=== PATIENT | female | born 1965 | race Caucasian/White ===

== ENCOUNTER → 2022-02-08 | Outpatient (CLI) | payer BC, SELFPAY ==
--- NOTE | 2022-02-08 10:04 | MRI_ITS ---
STUDY: MR RIGHT HIP ARTHROGRAPHY REASON FOR EXAM: Right hip pain for 10 months. TECHNIQUE: Standardized fat and water weighted pulse sequences were obtained in all 3 orthogonal planes after intra-articular instillation of dilute Dotarem. COMPARISON: Fluoroscopic image from arthrogram preceding the MRI. FINDINGS: Normal hip joint without articular joint space narrowing. Normal acetabulum. There is thickening of the anterior and superior labrum with a small tear of the anterosuperior labrum (URIEL images 10, 11). There is a small focus of bone edema of the lateral aspect of the femoral head (T2 coronal images 11, 12). Normal femoral neck and intratrochanteric region. Normal gluteus minimus, medius and iliopsoas tendons and distal insertions. There is no trochanteric, iliopsoas or iliopectineal bursitis. Normal superior and inferior pubic rami. Normal pubic symphysis. Normal ischial tuberosity. Normal origin of the hamstring tendons. Normal visualized iliac wing, sacroiliac joint, and sacral ala. There is mild extravasated contrast at the anterior aspect of the joint. MRI/Lower Ext/Jt Only/W Contrast IMPRESSION: Small tear of the anterosuperior labrum. Small focus of bone edema of the lateral aspect of the femoral head suggestive of femoroacetabular impingement. Electronically Signed: Nas George MD at 12:30 EDT ,
--- NOTE | 2022-02-08 10:20 | RAD_ITS ---
CLINICAL HISTORY: Female, 56 years old. Chronic right hip pain. PROCEDURE: ARTHROGRAM - RIGHT HIP CONSENT: The procedure as well as the benefits and possible complications including infection and bleeding were explained to the patient. Informed consent was obtained. FLUOROSCOPY TIME (if supplied): (25 seconds) minutes/seconds Injection Information: 10 cc of dilute MRI contrast. Number of images obtained: 1 TECHNIQUE: (All elements of maximal sterile barrier technique followed, including US elements as applicable) The patient was in the supine position. The overlying skin was prepped and draped in usual sterile fashion. Following local anesthetic application and under direct fluoroscopic guidance, a 22-gauge spinal needle was placed into the hip joint. 2 cc of ISOVUE 300 was injected for confirmation. Following this, 10 cc of dilute MRI contrast was injected. MRI will follow. The patient tolerated the procedure well. RAD/Arthrogram Hip IMPRESSION: Right hip arthrogram for MRI imaging. Electronically Signed: Jr hSah MD at 12:35 EDT ,
[2022-02-08] MEDS: Lidocaine 2% (10 ml mdv) 10 ML Vial 8 ML INFILT (10:55)
[2022-02-08] MEDS: Gadoterate Meglumine Diluted 10 ML, Iopamidol 5 ML, Lidocaine 1% (20 ml mdv) 5 ML, Epin... INTRAARTIC (11:02)
[2022-02-08] MEDS: Iopamidol 10 ML in Syringe 1 EACH 600 ML INTRAARTIC (11:02)
== END | disposition home or self-care (01) ==
PROVIDERS: PCP Family Medicine; Referring Provider Specialist; Visit Provider Specialist
DX: M25.851 Other specified joint disorders, right hip (principal)
CPT/HCPCS: 27093; 73525; 73722; Q9967

== ENCOUNTER 2024-03-14 08:54 | Outpatient (RCR) | payer BC, SELFPAY ==
[2024-03-14 09:03] VITALS: BP 140/84; PULSE 108; RESP 18; TEMP 36.7; BMI 30.6
--- NOTE | 2024-03-14 14:18 | HP.PCM_ITS ---
History of Present Illness Date of Service: 03/14/24 Chief Complaint: Nonhealing wound of right corea s/p laceration History of Wound: Flores is a pleasant 58 yo woman that presents to the wound healing center today for evaluation and treatment of a nonhealing wound of her right corea s/p a laceration in the beginning of February that occurred due to her falling through wood steps at her home. She was taken to [facility] by ambulance at that time and was seen by Dr. Munoz who sutured the laceration in the ER. She was started on Keflex to prevent infection and has been following up with him over the last few weeks. There was still a lot of swelling and erythema and Bactrim was added after the first visit to cover for additional possible infection and she has been taking that for approx. 3 weeks. He removed the stitches last week and tried to keep the laceration approximated with steri-str ips to encourage further healing and prevent further dehiscence and referred her to the wound center for further treatment. She will complete her antibiotic treatment tomorrow. She has been dressing her wound with Telfa bandages and using an MARI bandage for compression. She notes moderate to heavy drainage from the wound but no odor. She has some pain. There has been no increase in erythema. She has not been showering. She has only been cleaning with soap and water with dressing changes. She is otherwise healthy and does not have diabetes and has not had problems healing in the past. She will be leaving to go to her daughter's home in [place] on Sunday for approx. 1 week to help her move back to [place]. [facility] Medical History Hyperlipidemia Asthma Fibromyalgia Home Medications ?Medication ?Instructions ?Recorded ?Last Taken ?Type amitriptyline 50 mg tablet 50 mg PO QHS 03/14/24 Unknown History duloxetine 60 mg capsule,delayed 60 mg PO DAILY 03/14/24 Unknown History release fluticasone 250 mcg-salmeterol 50 1 ea inhalation BID 03/14/24 Unknown History mcg/dose blistr powdr for inhalation montelukast 10 mg tablet 10 mg PO QHS 03/14/24 Unknown History simvastatin 5 mg tablet 5 mg PO QPM 03/14/24 Unknown History zolpidem 5 mg tablet 5 mg PO QHS 03/14/24 Unknown History Allergy/AdvReac Type Severity Reaction Status Date / Time No Known Allergies Allergy Verified 03/14/24 09:02 Social History Smoking Status: Never smoker Vital Signs Vital Signs Vital Signs: 03/14/24 09:03 Temperature 98.1 F Temperature Source Temporal Pulse Rate 108 H Respiratory Rate 18 Blood Pressure 140/84 H Blood Pressure Mean 102 Blood Pressure Source Monitor Blood Pressure Position Semi-Fowlers Blood Pressure Location Left Arm Oxygen Delivery Method Room Air Weight Weight: 73.482 kg Body Mass Index (BMI) 30.6 Debridement Note Debridement Note Post-Debridement Measurements and Additional Note: Post-Debridement Measurements/Treatment WC - Nurse 1 - General Ulcer Assessment Start: 03/14/24 09:01 Freq: Status: Active Protocol: JAVIER Activity Type Activity Date Activity User E-sign Co-sign Detail Recorded Client Recorded Date Recorded By Document 03/14/24 09:03 [email or web address] [id number] 03/14/24 09:10 KW 03/14/24 09:03 - Today's Visit Information Type of service Initial Visit Arrival Mode Ambulatory Patient Identification Verified (Name & Yes ) Height and Weight Height 5 ft 1 in Weight 73.482 kg Weight in Pounds 162.0 lbs Weight Measurement Method Estimated by Patient Body Mass Index (BMI) 30.6 BMI Classification Obese BSA - Jorge 1.73 Vital Signs Temperature (97.8 F-99.1 F) 98.1 F Temperature Source Temporal Pulse Rate (60-100) 108 H Pulse Location Monitor Respiratory Rate (12-18) 18 Respiratory rate source Observation Oxygen Delivery Method Room Air Blood Pressure (90/60-120/80) 140/84 H Blood Pressure Mean 102 Source Monitor Position Semi-Fowlers Blood Pressure Location Left Arm History Since Last Visit- (Skip if this is Patient's initial visit) Left Footwear Regular Shoe Right Footwear Regular Shoe Pain Scale: 0-10 Numeric Is Patient Pain Free? Yes Lower Extremity Assessment/ Foot Assessment/ Toe Nail Assessment Left -Posterior Tibial Palpable Yes -Dorsalis Pedis Palpable Yes -Hair Growth on Legs Yes -Hair Growth on Toes Yes -Temperature of Extremity Warm -Capillary Refill Less than 3 Seconds -Thick No -Discolored No -Deformed No -Improper Length & Hygeine No Right -Posterior Tibial Palpable Yes -Dorsalis Pedis Palpable Yes -Hair Growth on Legs Yes -Hair Growth on Toes Yes -Temperature of Extremity Warm -Capillary Refill Less than 3 Seconds -Thick No -Discolored No -Deformed No -Improper Length & Hygeine No Communication Assessment Preferred language Arabic Molder Offbearer Required No Able to Read Yes Able to Write Yes Caregiver Communication Skills No Impairment Impairment Right Hearing Abillity Normal Left Hearing Abillity Normal Visual Assistive Devices Contacts Teaching Assessment Preferences Verbal Barriers to Learning None Readiness To Learn Excellent Willingness to Engage in Self Management High Activies Readiness to Engage in Self Management High Activities Anxiety Level Calm Cooperation Cooperative Perception Coherent Interest in Health Problem Asks Questions Education Importance Acknowledges Need Does Patient Smoke tobacco or other Yes substances Smoking Status Never smoker Is Patient Diabetic No Functional Assessment Recent Decline in Ability to Perform Denies Any Declines Culture/Jehovah'S Witness/J2Ee Android Developer Cultural/Jehovah'S Witness Needs that may affect No Treatment Plan Would you allow our hospital access representative to No meet you for the purpose of spiritual/ emotional support? J2Ee Android Developer to contact place of pentecostal No WC - Nurse 1 - General Ulcer Measurement Start: 03/14/24 09:01 Freq: Status: Active Protocol: Activity Type Activity Date Activity User E-sign Co-sign Detail Recorded Client Recorded Date Recorded By Document 03/14/24 09:03 [id number] 03/14/24 09:10 KW 03/14/24 09:03 Wound Center Nurse 1 #1 RT COREA -Current Size (cm) - Length 12 -Current Size (cm) - Width 10 -Current Size (cm) - Depth 0.1 -Total Square Cm 120 -Date of Last Picture (Recall this 03/14/24 field) -Wound Margin Distinct, Outline Attached -Necrosis Amt Large (67-100%) -Necrotic Tissue Type Eschar -Texture (Rozina-wound Skin Appearance) Assessed -Moisture (Rozina-wound Skin Appearance) Assessed -Color (Rozina-wound Skin Appearance) Assessed, Erythema -Temperature (Rozina-wound Skin No Abnormality Appearance) (Pt Warm) -Tenderness on Palpation (Rozina-wound No Skin Appearance) -Ulcer Cleansing Rinsed/ Irrigated with Saline -Foul Odor after Cleansing No -Anesthetic Used 4% Lidocaine Solution Right Calf (cm) 33.5 Right Ankle (cm) 19.5 WC - Nurse 2 - General Ulcer CM Notes Start: 03/14/24 09:01 Freq: Status: Active Protocol: Activity Type Activity Date Activity User E-sign Co-sign Detail Recorded Client Recorded Date Recorded By Document 03/14/24 09:47 [id number] 03/14/24 10:42 03/14/24 09:47 Wound Center Nurse 2 #1 RT COREA -Time 09:47 -Correct Patient Yes -Correct Side, Site, Position Yes -Correct Procedure Yes -Procedure Performed Yes -Type of Procedure Debridement -Clinical Debridement Subcutaneous -Tissue Removed Subcutaneous -Post Debridement (cm) - Length 10.5 -Post Debridement (cm) - Width 9.5 -Post Debridement (cm) - Depth 0.5 -Total Square (Post) (cm) 99.75 -Area of Debridement (cm) - Length 10.5 -Area of Debridement (cm) - Width 9.5 -Total Square (Area) (cm) 99.75 -Tunneling No -Undermining/Tunneling No -Circular Undermining No -Wound/Ulcer Outcome Not Healed -Ulcer Cleansing Rinsed/ Irrigated with Saline -Foul Odor after Cleansing No -Bioengineered Tissue No -Bleeding Controlled with Pressure -Treatment Response Procedure Tolerated Well -Debridement - Subq, 1st 20sq cm Yes -Debridement, SubQ, ea addt'l 20sq cm 4 or part thereof Pain Scale: 0-10 Numeric Is Patient Pain Free? Yes WC - Nurse 3 - General Ulcer D/C NN Start: 03/14/24 09:01 Freq: Status: Active Protocol: Activity Type Activity Date Activity User E-sign Co-sign Detail Recorded Client Recorded Date Recorded By Document 03/14/24 11:53 [id number] 03/14/24 11:56 03/14/24 11:53 Wound Care Center Nurse 3 #1 RT COREA -Ulcer Cleansing Rinsed/ Irrigated with Saline -Primary Dressing Applied Aquacel AG 4x4, Fibracol Plus 4x4 -Other Dressing ABD -Primary Dressing Covered/Secured with Dry Gauze & Roll Gauze, Secured with Tape -Aquacel AG 4x4 2 -Fibracol Plus 4x4 3 Right -Tubular Bandage Single Layer -Size of Tubigrip Used Size D -Size D ($) 2 Treatment Response Procedure Tolerated Well Pain Scale: 0-10 Numeric Is Patient Pain Free? No RLE -Description Aching -Intensity 5 -Duration (hours) Acute -Pain Behavior Withdrawal from Touch -Pain Aggravating Factors Exercise/ Activity, Debridement -Alleviating Factors/Interventions Medication,None -Effectiveness of Alleviating Factor/ Minimally Intervention effective Teaching: Wound Center Compression Wraps & Stockings -Person Taught Patient -Teaching Method Discussion, Demonstration -Response to teaching Verbalize Understanding Dressing Your Wound -Person Taught Patient -Teaching Method Discussion, Demonstration -Response to teaching Verbalize Understanding WC - Visit Discharge Discharge Condition Stable Ambulatory Status Ambulatory Transportation Private Auto Medication Reconcilliation completed & No provided to patient/care provider Clinical Summary of Care Provided Yes Assessment/Plan Assessment/Plan (1) Fibromyalgia: CODE(S): M79.7 - Fibromyalgia (2) Asthma: CODE(S): J45.909 - Unspecified asthma, uncomplicated QUALIFIERS: Asthma severity: mild Asthma persistence: persistent Asthma complication type: unspecified Qualified Code(s): J45.30 - Mild persistent asthma, uncomplicated (3) Hyperlipidemia: CODE(S): E78.5 - Hyperlipidemia, unspecified QUALIFIERS: Hyperlipidemia type: unspecified Qualified Code(s): E78.5 - Hyperlipidemia, unspecified (4) Ulcer of right corea with fat layer exposed: CODE(S): L97.812 - Non-pressure chronic ulcer of other part of right lower leg with fat layer exposed (5) Nonhealing nonsurgical wound with fat layer exposed: CODE(S): T14.8XXA - Other injury of unspecified body region, initial encounter (6) Tear of skin of multiple sites of right lower extremity: CODE(S): S81.811A - Laceration without foreign body, right lower leg, init ial encounter QUALIFIERS: Encounter type: sequela Qualified Code(s): S81.811S - Laceration without foreign body, right lower leg, sequela (7) Laceration of right lower leg with complication: CODE(S): S81.811A - Laceration without foreign body, right lower leg, initial encounter QUALIFIERS: Encounter type: sequela Qualified Code(s): S81.811S - Laceration without foreign body, right lower leg, sequela PLAN: Plan Wound debridement performed today in clinic as annotated above. At home wound-care instructions: Will have her use Fibracol to open areas with additional piece of Aquacel Ag at the deepest part/apex and cover with ABD. She will use and MARI bandage for compression or Tubigrip. Advised her to shower and wash with antibacterial soap daily before applying a new dressing. if dressing is adherent then she can apply warm washcloth to loosen dressing from wound/ulcer. Keep dressing clean and dry. Off-loading: The patient was instructed to avoid pressure and friction on the affected areas. Reposition every 2 hours at minimum. Avoid prolonged standing and/or dangling of legs. When seated, feet should be elevated at chest level. Frequent ambulation is encouraged. Diet: Patient encouraged to increase protein intake while taking caution to avoid high carbohydrate and/or sugar intake. Labs/cultures/imaging: Wound culture taken today and will treat with antibiotic based on results. Follow-up: Return in 2 weeks for wound care follow up as she will be out of town. Return sooner or report to the emergency room should symptoms worsen, or new symptoms arise. Note: [employer] speech recognition food safety manager software was used to create portions of this document. Sound-alike and misspelled words, as well as other food safety manager errors may be contained in the documentation.
== END 2024-03-15 23:59 | disposition home or self-care (01) ==
LOC: WC 08:54
PROVIDERS: PCP Family Medicine; Referring Provider Student in an Organized Health Care Education/Training Program; Visit Provider Family Medicine
DX: S81.811A Laceration without foreign body, right lower leg, initial encounter (principal); L97.212 Non-pressure chronic ulcer of right calf with fat layer exposed; E78.5 Hyperlipidemia, unspecified; J45.30 Mild persistent asthma, uncomplicated; M79.7 Fibromyalgia; W10.9XXA Fall (on) (from) unspecified stairs and steps, initial encounter; Y92.009 Unspecified place in unspecified non-institutional (private) residence as the place of occurrence of the external cause; M79.89 Other specified soft tissue disorders; Z79.899 Other long term (current) drug therapy
CPT/HCPCS: 11042; 11045; 87070; 87075; 87205; 99213; G0463

== ENCOUNTER 2024-04-11 10:30 | Outpatient (RCR) | payer BC, SELFPAY ==
[2024-03-16 00:57] VITALS: BP 140/84; PULSE 108; RESP 18; TEMP 36.7; BMI 30.6
[2024-03-28 10:14] VITALS: BP 129/77; PULSE 90; RESP 18; TEMP 36.1; BMI 30.6
[2024-04-04 10:19] VITALS: BP 113/62; PULSE 105; RESP 18; TEMP 36.1; BMI 30.6
[2024-04-11 10:27] VITALS: BP 118/72; PULSE 102; RESP 16; TEMP 36.7; BMI 30.6
== END 2024-04-14 23:59 | disposition home or self-care (01) ==
LOC: WC 10:30
PROVIDERS: PCP Family Medicine; Referring Provider Student in an Organized Health Care Education/Training Program; Visit Provider Family Medicine
DX: L97.812 Non-pressure chronic ulcer of other part of right lower leg with fat layer exposed (principal); M79.7 Fibromyalgia; J45.909 Unspecified asthma, uncomplicated; E78.5 Hyperlipidemia, unspecified; T14.8XXA Other injury of unspecified body region, initial encounter; S81.811S Laceration without foreign body, right lower leg, sequela
CPT/HCPCS: 11042; 11045; 87070; 87075; 87077; 87186; 87205

== ENCOUNTER 2024-05-09 10:30 | Outpatient (RCR) | payer BC, SELFPAY ==
[2024-04-15 00:24] VITALS: BP 140/84; PULSE 108; RESP 18; TEMP 36.7; BMI 30.6
[2024-04-18 11:22] VITALS: BP 113/74; PULSE 111; RESP 18; TEMP 36.3; BMI 30.6
--- NOTE | 2024-04-18 13:20 | PN.PCM_ITS ---
History of Present Illness Date of Service: 04/18/24 Chief Complaint: Nonhealing ulcer of right corea s/p laceration History of Wound: Flores is a pleasant 58 yo woman that presents to the wound healing center today for evaluation and treatment of a nonhealing ulcer of her right corea s/p a laceration in the beginning of February that occurred due to her falling through wood steps at her home. She was taken to [facility] by ambulance at that time and was seen by Dr. Munoz who sutured the laceration in the ER. She was started on Keflex to prevent infection and has been following up with him over the last few weeks. There was still a lot of swelling and erythema and Bactrim was added after the first visit to cover for additional possible infection and she has been taking that for approx. 3 weeks. He removed the stitches last week and tried to keep the laceration approximated with steri-str ips to encourage further healing and prevent further dehiscence and referred her to the wound center for further treatment. She had been dressing her wound with Telfa bandages and using an MARI bandage for compression. She notes moderate to heavy drainage from the wound but no odor. She has some pain. There has been no increase in erythema. She has not been showering. She has only been cleaning wit h soap and water with dressing changes. She is otherwise healthy and does not have diabetes and has not had problems healing in the past. Subjective Subjective Flores returns today for evaluation of her right corea ulcer. She tolerated dressings with hydrogel and adaptic and ABDs well. She reports light drainage. She denies increased drainage, fever or chills. Objective Data Objective Data Vital Signs: Vital Signs Temp Pulse Resp BP O2 Del Method 97.4 F L 111 H 18 113/74 Room Air 04/18/24 11:22 04/18/24 11:22 04/18/24 11:22 04/18/24 11:22 04/18/24 11:22 Oxygen Delivery Method Room Air Weight: 73.482 kg Body Mass Index (BMI) 30.6 Physical Exam Const alert, oriented x3 and no apparent distress General Appearance: cooperative and comfortable HEENT normocephalic and head/scalp atraumatic Resp normal respiratory effort Effort and Inspection: able to speak in complete sentences Cardio regular rate and regular rhythm Skin Wounds: wounds noted Wound Narrative: as in clinical panel Psych mental status grossly normal, thought process normal, cooperative and affect normal Debridement Note Debridement Note Wound debrided: right corea Laterality: Right Type of Debridement: Excisional debridement Anesthesia Used: 4% Lidocaine Solution, 5% Lidocaine Gel and Cetacaine Depth: Down to and including healthy tissue and in the subcutaneous layer Percentage of wound debrided: 100 Instrument Used: 5mm curette Tissue Removed: Yellow slough, devitalized tissue Severity: Fat Layer Exposed Amount of bleeding with debridement: Mild Bleeding Controlled with: Compression and gauze Patient tolerated procedure: Patient tolerated procedure well Post-Debridement Measurements and Additional Note: Post-Debridement Measurements/Treatment - Nurse 1 - General Ulcer Assessment Start: 04/18/24 11:22 Freq: Status: Active Protocol: JAVIER Activity Type Activity Date Activity User E-sign Co-sign Detail Recorded Client Recorded Date Recorded By Document 04/18/24 11:22 BLANCA [id number] 04/18/24 11:28 BLANCA 04/18/24 11:22 WC - Today's Visit Information Type of service Follow-up Visit (Physician/[employer]PER[employer] ) Arrival Mode Ambulatory Patient Identification Verified (Name & Yes ) Height and Weight Body Mass Index (BMI) 30.6 BMI Classification Obese Vital Signs Temperature (97.8 F-99.1 F) 97.4 F L Temperature Source Temporal Pulse Rate (60-100) 111 H Pulse Location Monitor Respiratory Rate (12-18) 18 Respiratory rate source Observation Oxygen Delivery Method Room Air Blood Pressure (90/60-120/80) 113/74 Blood Pressure Mean (mm Hg) 87 Source Monitor Position Sitting Blood Pressure Location Left Arm History Since Last Visit- (Skip if this is Patient's initial visit) Have you changed medications since your No last visit? Any new allergies or adverse reactions No Had a fall/change in ADL's that may No increase risk of falls Signs or symptoms of abuse and/or No neglect since last visit Have you been in the hospital since your No last visit? Has dressing in place as prescribed Yes Has compression in place as prescribed Yes Has offloadiing in place as prescribed N/A Experienced any changes in pain level or No management Left Footwear Regular Shoe Right Footwear Regular Shoe Pain Scale: 0-10 Numeric Is Patient Pain Free? Yes - Nurse 1 - General Ulcer Measurement Start: 04/18/24 11:22 Freq: Status: Active Protocol: Activity Type Activity Date Activity User E-sign Co-sign Detail Recorded Client Recorded Date Recorded By Document 04/18/24 11:22 KW [id number] 04/18/24 11:28 KW 04/18/24 11:22 Wound Center Nurse 1 #1 RT COREA -Current Size (cm) - Length 9 -Current Size (cm) - Width 8.5 -Current Size (cm) - Depth 0.2 -Total Square Cm 76.5 -Date of Last Picture (Recall this 04/18/24 field) -Exudate Amt Small -Exudate Type Serosanguineous -Wound Margin Distinct, Outline Attached -Granulation Amt Medium (34-66%) -Granulation Quality Red -Necrosis Amt Medium (34-66%) -Necrotic Tissue Type Adherent Slough -Texture (Rozina-wound Skin Appearance) Assessed -Moisture (Rozina-wound Skin Appearance) Assessed -Color (Rozina-wound Skin Appearance) Assessed -Temperature (Rozina-wound Skin No Abnormality Appearance) (Pt Warm) -Tenderness on Palpation (Rozina-wound No Skin Appearance) -Ulcer Cleansing Rinsed/ Irrigated with Saline -Foul Odor after Cleansing No -Anesthetic Used 5% Lidocaine Gel Right Calf (cm) 34 Right Ankle (cm) 20 WC - Nurse 2 - General Ulcer CM Notes Start: 04/18/24 11:22 Freq: Status: Active Protocol: Activity Type Activity Date Activity User E-sign Co-sign Detail Recorded Client Recorded Date Recorded By Document 04/18/24 11:42 [id number] 04/18/24 12:03 04/18/24 11:42 Wound Center Nurse 2 #1 RT COREA -Time 11:42 -Correct Patient Yes -Correct Side, Site, Position Yes -Correct Procedure Yes -Procedure Performed Yes -Type of Procedure Debridement -Clinical Debridement Subcutaneous -Tissue Removed Subcutaneous -Post Debridement (cm) - Length 3.0 -Post Debridement (cm) - Width 6.0 -Post Debridement (cm) - Depth 0.2 -Total Square (Post) (cm) 18.00 -Area of Debridement (cm) - Length 3.0 -Area of Debridement (cm) - Width 6.0 -Total Square (Area) (cm) 18.00 -Tunneling No -Undermining/Tunneling No -Circular Undermining No -Wound/Ulcer Outcome Not Healed -Ulcer Cleansing Rinsed/ Irrigated with Saline -Foul Odor after Cleansing No -Bioengineered Tissue No -Bleeding Controlled with Pressure -Treatment Response Procedure Tolerated Well -Debridement - Subq, 1st 20sq cm Yes Pain Scale: 0-10 Numeric Is Patient Pain Free? Yes - Nurse 3 - General Ulcer D/C NN Start: 04/18/24 11:22 Freq: Status: Active Protocol: Activity Type Activity Date Activity User E-sign Co-sign Detail Recorded Client Recorded Date Recorded By Document 04/18/24 12:10 RB [id number] 04/18/24 12:11 RB 04/18/24 12:10 Wound Care Center Nurse 3 #1 RT COREA -Ulcer Cleansing Rinsed/ Irrigated with Saline -Primary Dressing Applied NonAdherent Contact Layer -Other Dressing hydrogel -Primary Dressing Covered/Secured with Dry Gauze & Roll Gauze, Secured with Tape -Other Covering ABD Right -Tubular Bandage Single Layer -Size of Tubigrip Used Size D -Size D ($) 1 Treatment Response Procedure Tolerated Well Pain Scale: 0-10 Numeric Is Patient Pain Free? Yes - Visit Discharge Discharge Condition Stable Ambulatory Status Ambulatory Transportation Private Auto Medication Reconcilliation completed & No provided to patient/care provider Clinical Summary of Care Provided Yes Assessment/Plan Assessment/Plan (1) Fibromyalgia: CODE(S): M79.7 - Fibromyalgia (2) Asthma: CODE(S): J45.909 - Unspecified asthma, uncomplicated QUALIFIERS: Asthma severity: mild Asthma persistence: persistent Asthma complication type: unspecified Qualified Code(s): J45.30 - Mild persistent asthma, uncomplicated (3) Hyperlipidemia: CODE(S): E78.5 - Hyperlipidemia, unspecified QUALIFIERS: Hyperlipidemia type: unspecified Qualified Code(s): E78.5 - Hyperlipidemia, unspecified (4) Ulcer of right corea with fat layer exposed: CODE(S): L97.812 - Non-pressure chronic ulcer of other part of right lower leg with fat layer exposed (5) Nonhealing nonsurgical wound with fat layer exposed: CODE(S): T14.8XXA - Other injury of unspecified body region, initial encounter (6) Tear of skin of multiple sites of right lower extremity: CODE(S): S81.811A - Laceration without foreign body, right lower leg, initial encounter QUALIFIERS: Encounter type: sequela Qualified Code(s): S81.811S - Laceration without foreign body, right lower leg, sequela (7) Laceration of right lower leg with complication: CODE(S): S81.811A - Laceration without foreign body, right lower leg, initial encounter QUALIFIERS: Encounter type: sequela Qualified Code(s): S81.811S - Laceration without foreign body, right lower leg, sequela PLAN: Plan Wound debridement performed today in clinic as annotated above. At home wound-care instructions: There is improvement with change to Hydrogel and adaptic and having her reapply hydrogel 8-12 hours after initial dressing change to areas that are more dry. She will continue to use an MARI bandage for compression or Tubigrip. Advised her to shower and wash with antibacterial soap daily before applying a new dressing. if dressing is adherent then she can apply warm washcloth to loosen dressing from wound/ulcer. Keep dressing clean and dry. Off-loading: The patient was instructed to avoid pressure and friction on the affected areas. Reposition every 2 hours at minimum. Avoid prolonged standing an d/or dangling of legs. When seated, feet should be elevated at chest level. Frequent ambulation is encouraged. Diet: Patient encouraged to increase protein intake while taking caution to avoid high carbohydrate and/or sugar intake. Labs/cultures/imaging: Wound culture was positive for Serratia, Staph and anaerobic bacteria. She completed treatment with Cipro and Flagyl. Follow-up: Return in 1 week for wound care follow up as she will be out of town. Return sooner or report to the emergency room should symptoms worsen, or new symptoms arise. Note: [employer] speech recognition health informatics instructor software was used to create portions of this document. Sound-alike and misspelled words, as well as other health informatics instructor errors may be contained in the documentation.
--- NOTE | 2024-04-22 11:37 | WC ---
PHOTO RIGHT WU 04/18/24
[2024-04-25 08:19] VITALS: BP 140/84; PULSE 94; RESP 18; TEMP 35.7; BMI 30.6
--- NOTE | 2024-04-25 09:18 | PN.PCM_ITS ---
History of Present Illness Date of Service: 04/25/24 Chief Complaint: Nonhealing ulcer of right corea s/p laceration History of Wound: Flores is a pleasant 58 yo woman that presents to the wound healing center today for evaluation and treatment of a nonhealing ulcer of her right corea s/p a laceration in the beginning of February that occurred due to her falling through wood steps at her home. She was taken to [facility] by ambulance at that time and was seen by Dr. Munoz who sutured the laceration in the ER. She was started on Keflex to prevent infection and has been following up with him over the last few weeks. There was still a lot of swelling and erythema and Bactrim was added after the first visit to cover for additional possible infection and she has been taking that for approx. 3 weeks. He removed the stitches last week and tried to keep the laceration approximated with steri-str ips to encourage further healing and prevent further dehiscence and referred her to the wound center for further treatment. She had been dressing her wound with Telfa bandages and using an MARI bandage for compression. She notes moderate to heavy drainage from the wound but no odor. She has some pain. There has been no increase in erythema. She has not been showering. She has only been cleaning wit h soap and water with dressing changes. She is otherwise healthy and does not have diabetes and has not had problems healing in the past. Subjective Subjective Flores returns today for evaluation of her right corea ulcer. She tolerated dressings with hydrogel and adaptic and ABDs well. She reports light drainage. She denies increased drainage, fever or chills. Objective Data Objective Data Vital Signs: Vital Signs Temp Pulse Resp BP O2 Del Method 96.3 F L 94 18 140/84 H Room Air 04/25/24 08:19 04/25/24 08:19 04/25/24 08:19 04/25/24 08:19 04/25/24 08:19 Oxygen Delivery Method Room Air Weight: 73.482 kg Body Mass Index (BMI) 30.6 Physical Exam Const alert, oriented x3 and no apparent distress General Appearance: cooperative and comfortable HEENT normocephalic and head/scalp atraumatic Resp normal respiratory effort Effort and Inspection: able to speak in complete sentences Cardio regular rate and regular rhythm Skin Wounds: wounds noted Wound Narrative: as in clinical panel Psych mental status grossly normal, thought process normal, cooperative and affect normal Debridement Note Debridement Note Wound debrided: right corea Laterality: Right Type of Debridement: Excisional debridement Anesthesia Used: 5% Lidocaine Gel and Cetacaine Depth: Down to and including healthy tissue and in the subcutaneous layer Percentage of wound debrided: 100 Instrument Used: 3mm curette Tissue Removed: Yellow slough, devitalized tissue Severity: Fat Layer Exposed Amount of bleeding with debridement: Mild Bleeding Controlled with: Compression and gauze Patient tolerated procedure: Patient tolerated procedure well Post-Debridement Measurements and Additional Note: Post-Debridement Measurements/Treatment - Nurse 1 - General Ulcer Assessment Start: 04/18/24 11:22 Freq: Status: Active Protocol: JAVIER Activity Type Activity Date Activity User E-sign Co-sign Detail Recorded Client Recorded Date Recorded By Document 04/18/24 11:22 KW [id number] 04/18/24 11:28 KW Document 04/25/24 08:19 KW [id number] 04/25/24 08:31 KW 04/18/24 04/25/24 11:22 08:19 - Today's Visit Information Type of service Follow-up Visit Follow-up Visit (Physician/PLATE MAKER (Physician/PLATE MAKER ) ) Arrival Mode Ambulatory Ambulatory Accompanied by Patient Identification Verified (Name & Yes Yes ) Height and Weight Body Mass Index (BMI) 30.6 30.6 BMI Classification Obese Obese Vital Signs Temperature (97.8 F-99.1 F) 97.4 F L 96.3 F L Temperature Source Temporal Temporal Pulse Rate (60-100) 111 H 94 Pulse Location Monitor Monitor Respiratory Rate (12-18) 18 18 Respiratory rate source Observation Observation Oxygen Delivery Method Room Air Room Air Blood Pressure (90/60-120/80) 113/74 140/84 H Blood Pressure Mean (mm Hg) 87 102 Source Monitor Monitor Position Sitting Semi-Fowlers Blood Pressure Location Left Arm Left Arm History Since Last Visit- (Skip if this is Patient's initial visit) Have you changed medications since your No No last visit? Any new allergies or adverse reactions No No Had a fall/change in ADL's that may No No increase risk of falls Signs or symptoms of abuse and/or No No neglect since last visit Have you been in the hospital since your No No last visit? Has dressing in place as prescribed Yes Yes Has compression in place as prescribed Yes Yes Has offloadiing in place as prescribed N/A N/A Experienced any changes in pain level or No No management Left Footwear Regular Shoe Regular Shoe Right Footwear Regular Shoe Regular Shoe Pain Scale: 0-10 Numeric Is Patient Pain Free? Yes Yes WC - Nurse 1 - General Ulcer Measurement Start: 04/18/24 11:22 Freq: Status: Active Protocol: Activity Type Activity Date Activity User E-sign Co-sign Detail Recorded Client Recorded Date Recorded By Document 04/18/24 11:22 KW [id number] 04/18/24 11:28 KW Document 04/25/24 08:19 KW [id number] 04/25/24 08:31 KW 04/18/24 04/25/24 11:22 08:19 Wound Center Nurse 1 #1 RT COREA -Current Size (cm) - Length 9 3 -Current Size (cm) - Width 8.5 5.7 -Current Size (cm) - Depth 0.2 0.3 -Total Square Cm 76.5 17.1 -Date of Last Picture (Recall this 04/18/24 04/25/24 field) -Exudate Amt Small Small -Exudate Type Serosanguineous Serosanguineous -Wound Margin Distinct, Distinct, Outline Outline Attached Attached -Granulation Amt Medium (34-66%) Large (67-100%) -Granulation Quality Red [place] -Necrosis Amt Medium (34-66%) Medium (34-66%) -Necrotic Tissue Type Adherent Slough Adherent Slough -Texture (Rozina-wound Skin Appearance) Assessed Assessed -Moisture (Rozina-wound Skin Appearance) Assessed Assessed -Color (Rozina-wound Skin Appearance) Assessed Assessed -Temperature (Rozina-wound Skin No Abnormality No Abnormality Appearance) (Pt Warm) (Pt Warm) -Tenderness on Palpation (Rozina-wound No No Skin Appearance) -Ulcer Cleansing Rinsed/ Rinsed/ Irrigated with Irrigated with Saline Saline -Foul Odor after Cleansing No No -Anesthetic Used 5% Lidocaine 5% Lidocaine Gel Gel Right Calf (cm) 34 Right Ankle (cm) 20 Left Calf (cm) 33.5 Left Ankle (cm) 19 WC - Nurse 2 - General Ulcer CM Notes Start: 04/18/24 11:22 Freq: Status: Active Protocol: Activity Type Activity Date Activity User E-sign Co-sign Detail Recorded Client Recorded Date Recorded By Document 04/18/24 11:42 [id number] 04/18/24 12:03 Document 04/25/24 08:43 [id number] 04/25/24 08:56 04/18/24 04/25/24 11:42 08:43 Wound Center Nurse 2 #1 RT COREA -Time 11:42 08:43 -Correct Patient Yes Yes -Correct Side, Site, Position Yes Yes -Correct Procedure Yes Yes -Procedure Performed Yes Yes -Type of Procedure Debridement Debridement -Clinical Debridement Subcutaneous Subcutaneous -Tissue Removed Subcutaneous Subcutaneous -Post Debridement (cm) - Length 3.0 1.0 -Post Debridement (cm) - Width 6.0 3.7 -Post Debridement (cm) - Depth 0.2 0.2 -Total Square (Post) (cm) 18.00 3.70 -Area of Debridement (cm) - Length 3.0 1.0 -Area of Debridement (cm) - Width 6.0 3.7 -Total Square (Area) (cm) 18.00 3.70 -Tunneling No No -Undermining/Tunneling No No -Circular Undermining No No -Wound/Ulcer Outcome Not Healed Not Healed -Ulcer Cleansing Rinsed/ Rinsed/ Irrigated with Irrigated with Saline Saline -Foul Odor after Cleansing No No -Bioengineered Tissue No No -Bleeding Controlled with Pressure Pressure -Treatment Response Procedure Procedure Tolerated Well Tolerated Well -Debridement - Subq, 1st 20sq cm Yes Yes Pain Scale: 0-10 Numeric Is Patient Pain Free? Yes Yes - Nurse 3 - General Ulcer D/C NN Start: 04/18/24 11:22 Freq: Status: Active Protocol: Activity Type Activity Date Activity User E-sign Co-sign Detail Recorded Client Recorded Date Recorded By Document 04/18/24 12:10 [id number] 04/18/24 12:11 04/18/24 12:10 Wound Care Center Nurse 3 #1 RT COREA -Ulcer Cleansing Rinsed/ Irrigated with Saline -Primary Dressing Applied NonAdherent Contact Layer -Other Dressing hydrogel -Primary Dressing Covered/Secured with Dry Gauze & Roll Gauze, Secured with Tape -Other Covering ABD Right -Tubular Bandage Single Layer -Size of Tubigrip Used Size D -Size D ($) 1 Treatment Response Procedure Tolerated Well Pain Scale: 0-10 Numeric Is Patient Pain Free? Yes - Visit Discharge Discharge Condition Stable Ambulatory Status Ambulatory Transportation Private Auto Medication Reconcilliation completed & No provided to patient/care provider Clinical Summary of Care Provided Yes Assessment/Plan Assessment/Plan (1) Fibromyalgia: CODE(S): M79.7 - Fibromyalgia (2) Asthma: CODE(S): J45.909 - Unspecified asthma, uncomplicated QUALIFIERS: Asthma severity: mild Asthma persistence: persistent Asthma complication type: unspecified Qualified Code(s): J45.30 - Mild persiste nt asthma, uncomplicated (3) Hyperlipidemia: CODE(S): E78.5 - Hyperlipidemia, unspecified QUALIFIERS: Hyperlipidemia type: unspecified Qualified Code(s): E78.5 - Hyperlipidemia, unspecified (4) Ulcer of right corea with fat layer exposed: CODE(S): L97.812 - Non-pressure chronic ulcer of other part of right lower leg with fat layer exposed (5) Nonhealing nonsurgical wound with fat layer exposed: CODE(S): T14.8XXA - Other injury of unspecified body region, initial encounter (6) Tear of skin of multiple sites of right lower extremity: CODE(S): S81.811A - Laceration without foreign body, right lower leg, initial encounter QUALIFIERS: Encounter type: sequela Qualified Code(s): S81.811S - Laceration without foreign body, right lower leg, sequela (7) Laceration of right lower leg with complication: CODE(S): S81.811A - Laceration without foreign body, right lower leg, initial encounter QUALIFIERS: Encounter type: sequela Qualified Code(s): S81.811S - Laceration without foreign body, right lower leg, sequela PLAN: Plan Wound debridement performed today in clinic as annotated above. At home wound-care instructions: There is improvement with change to Hydrogel and adaptic and having her reapply hydrogel 8-12 hours after initial dressing change to areas that are more dry. She will continue to use an MARI bandage for compression or Tubigrip. Advised her to shower and wash with antibacterial soap daily before applying a new dressing. If dressing is adherent then she can apply warm washcloth to loosen dressing from wound/ulcer. Keep dressing clean and dry. Off-loading: The patient was instructed to avoid pressure and friction on the affected areas. Reposition every 2 hours at minimum. Avoid prolonged standing and/or dangling of legs. When seated, feet should be elevated at chest level. Frequent ambulation is encouraged. Diet: Patient encouraged to increase protein intake while taking caution to avoid high carbohydrate and/or sugar intake. Labs/cultures/imaging: Wound culture was positive for Serratia, Staph and anaerobic bacteria. She completed treatment with Cipro and Flagyl. Follow-up: Return in 1 week for wound care follow up as she will be out of town. Return sooner or report to the emergency room should symptoms worsen, or new symptoms arise. Note: [employer] speech recognition multimedia production assistant software was used to create portions of this document. Sound-alike and misspelled words, as well as other multimedia production assistant errors may be contained in the documentation.
--- NOTE | 2024-04-28 10:48 | WC ---
PHOTO 04/25/24 Dean WU
[2024-05-02 10:25] VITALS: BP 116/78; PULSE 100; RESP 18; TEMP 36.3; BMI 30.6
--- NOTE | 2024-05-02 12:49 | PCM.WC.PN ---
History of Present Illness Date of Service: 05/02/24 Chief Complaint: Nonhealing ulcer of right corea s/p laceration History of Wound: Flores is a pleasant 58 yo woman that presents to the wound healing center today for evaluation and treatment of a nonhealing ulcer of her right corea s/p a laceration in the beginning of February that occurred due to her falling through wood steps at her home. She was taken to [facility] by ambulance at that time and was seen by Dr. Munoz who sutured the laceration in the ER. She was started on Keflex to prevent infection and has been following up with him over the last few weeks. There was still a lot of swelling and erythema and Bactrim was added after the first visit to cover for additional possible infection and she has been taking that for approx. 3 weeks. He removed the stitches last week and tried to keep the laceration approximated with steri-strips to encourage further healing and prevent further dehiscence and referred her to the wound center for further treatment. She had been dressing her wound with Telfa bandages and using an MARI bandage for compression. She notes moderate to heavy drainage from the wound but no odor. She has some pain. There has been no increase in erythema. She has not been showering. She has only been cleaning with soap and water with dressing changes. She is otherwise healthy and does not have diabetes and has not had problems healing in the past. Subjective Subjective Flores returns today for evaluation of her right corea ulcer. She is tolerating dressings with hydrogel and adaptic and ABDs well. She reports light drainage. She denies increased drainage, fever or chills. Objective Data Objective Data Vital Signs: Vital Signs Temp Pulse Resp BP O2 Del Method 97.4 F L 100 18 116/78 Room Air 05/02/24 10:25 05/02/24 10:25 05/02/24 10:25 05/02/24 10:25 04/25/24 08:19 Oxygen Delivery Method Room Air Weight: 73.482 kg Body Mass Index (BMI) 30.6 Physical Exam Const alert, oriented x3 and no apparent distress General Appearance: cooperative and comfortable HEENT normocephalic and head/scalp atraumatic Resp normal respiratory effort Effort and Inspection: able to speak in complete sentences Cardio regular rate and regular rhythm Skin Wounds: wounds noted Wound Narrative: as in clinical panel Psych mental status grossly normal, thought process normal, cooperative and affect normal Debridement Note Debridement Note Wound debrided: right corea Laterality: Right Type of Debridement: Excisional debridement Anesthesia Used: 4% Lidocaine Solution, 5% Lidocaine Gel and Cetacaine Depth: Down to and including healthy tissue and in the subcutaneous layer Percentage of wound debrided: 100 Instrument Used: 3mm curette Tissue Removed: Yellow slough, devitalized tissue Severity: Fat Layer Exposed Amount of bleeding with debridement: Mild Bleeding Controlled with: Compression and gauze Patient tolerated procedure: Patient tolerated procedure well Post-Debridement Measurements and Additional Note: Post-Debridement Measurements/Treatment - Nurse 1 - General Ulcer Assessment Start: 04/18/24 11:22 Freq: Status: Active Protocol: JAVIER Activity Type Activity Date Activity User E-sign Co-sign Detail Recorded Client Recorded Date Recorded By Document 04/18/24 11:22 KW [id number] 04/18/24 11:28 KW Document 04/25/24 08:19 KW [id number] 04/25/24 08:31 KW Document 05/02/24 10:25 RB [id number] 05/02/24 10:27 RB 04/18/24 04/25/24 05/02/24 11:22 08:19 10:25 - Today's Visit Information Type of service Follow-up Visit Follow-up Visit Follow-up Visit (Physician/SECTION LABORER (Physician/SECTION LABORER (Physician/SECTION LABORER ) ) ) Arrival Mode Ambulatory Ambulatory Ambulatory Transfer Assistance None Accompanied by Patient Identification Verified (Name & Yes Yes Yes ) Patient Requires Transmission-Based No Precautions Height and Weight Body Mass Index (BMI) 30.6 30.6 30.6 BMI Classification Obese Obese Obese Vital Signs Temperature (97.8 F-99.1 F) 97.4 F L 96.3 F L 97.4 F L Temperature Source Temporal Temporal Temporal Pulse Rate (60-100) 111 H 94 100 Pulse Location Monitor Monitor Monitor Respiratory Rate (12-18) 18 18 18 Respiratory rate source Observation Observation Observation Oxygen Delivery Method Room Air Room Air Blood Pressure (90/60-120/80) 113/74 140/84 H 116/78 Blood Pressure Mean (mm Hg) 87 102 90 Source Monitor Monitor Monitor Position Sitting Semi-Fowlers Semi-Fowlers Blood Pressure Location Left Arm Left Arm Left Arm History Since Last Visit- (Skip if this is Patient's initial visit) Have you changed medications since your No No No last visit? Any new allergies or adverse reactions No No No Had a fall/change in ADL's that may No No No increase risk of falls Signs or symptoms of abuse and/or No No No neglect since last visit Have you been in the hospital since your No No No last visit? Has dressing in place as prescribed Yes Yes Yes Has compression in place as prescribed Yes Yes Yes Has offloadiing in place as prescribed N/A N/A No Experienced any changes in pain level or No No No management Left Footwear Regular Shoe Regular Shoe Right Footwear Regular Shoe Regular Shoe Pain Scale: 0-10 Numeric Is Patient Pain Free? Yes Yes Yes WC - Nurse 1 - General Ulcer Measurement Start: 04/18/24 11:22 Freq: Status: Active Protocol: Activity Type Activity Date Activity User E-sign Co-sign Detail Recorded Client Recorded Date Recorded By Document 04/18/24 11:22 KW [id number] 04/18/24 11:28 KW Document 04/25/24 08:19 KW [id number] 04/25/24 08:31 KW Document 05/02/24 10:25 RB [id number] 05/02/24 10:27 RB 04/18/24 04/25/24 05/02/24 11:22 08:19 10:25 Wound Center Nurse 1 #1 RT COREA -Combined with other wound No -Current Size (cm) - Length 9 3 1 -Current Size (cm) - Width 8.5 5.7 2.5 -Current Size (cm) - Depth 0.2 0.3 0.2 -Total Square Cm 76.5 17.1 2.5 -Date of Last Picture (Recall this 04/18/24 04/25/24 field) -Tunneling No -Undermining/Tunneling No -Circular Undermining No -Exudate Amt Small Small Medium -Exudate Type Serosanguineous Serosanguineous Serosanguineous -Wound Margin Distinct, Distinct, Distinct, Outline Outline Outline Attached Attached Attached -Granulation Amt Medium (34-66%) Large (67-100%) Medium (34-66%) -Granulation Quality [place] -Slough/Fibrin Yes -Necrosis Amt Medium (34-66%) Medium (34-66%) Medium (34-66%) -Necrotic Tissue Type Adherent Slough Adherent Slough Adherent Slough -Structure Exposed N/A -Texture (Rozina-wound Skin Appearance) Assessed Assessed Assessed, Scarring -Moisture (Rozina-wound Skin Appearance) Assessed Assessed Assessed -Color (Rozina-wound Skin Appearance) Assessed Assessed Assessed -Temperature (Rozina-wound Skin No Abnormality No Abnormality No Abnormality Appearance) (Pt Warm) (Pt Warm) (Pt Warm) -Tenderness on Palpation ([place]oz[place]-wound No No No Skin Appearance) -Ulcer Cleansing Rinsed/ Rinsed/ Wound Cleanser Irrigated with Irrigated with Saline Saline -Foul Odor after Cleansing No No No -Anesthetic Used 5% Lidocaine 5% Lidocaine 5% Lidocaine Gel Gel Gel Lower Limb Edema Present Yes Right Calf (cm) 34 34 Right Ankle (cm) 20 19.5 Left Calf (cm) 33.5 Left Ankle (cm) 19 WC - Nurse 2 - General Ulcer CM Notes Start: 04/18/24 11:22 Freq: Status: Active Protocol: Activity Type Activity Date Activity User E-sign Co-sign Detail Recorded Client Recorded Date Recorded By Document 04/18/24 11:42 [id number] 04/18/24 12:03 Document 04/25/24 08:43 [id number] 04/25/24 08:56 Document 05/02/24 10:38 [id number] 05/02/24 10:53 04/18/24 04/25/24 05/02/24 11:42 08:43 10:38 Wound Center Nurse 2 #1 RT COREA -Time 11:42 08:43 10:39 -Correct Patient Yes Yes Yes -Correct Side, Site, Position Yes Yes Yes -Correct Procedure Yes Yes Yes -Procedure Performed Yes Yes Yes -Type of Procedure Debridement Debridement Debridement -Clinical Debridement Subcutaneous Subcutaneous Subcutaneous -Tissue Removed Subcutaneous Subcutaneous Subcutaneous -Post Debridement (cm) - Length 3.0 1.0 0.7 -Post Debridement (cm) - Width 6.0 3.7 2.2 -Post Debridement (cm) - Depth 0.2 0.2 0.2 -Total Square (Post) (cm) 18.00 3.70 1.54 -Area of Debridement (cm) - Length 3.0 1.0 0.7 -Area of Debridement (cm) - Width 6.0 3.7 2.2 -Total Square (Area) (cm) 18.00 3.70 1.54 -Tunneling No No No -Undermining/Tunneling No No No -Circular Undermining No No No -Wound/Ulcer Outcome Not Healed Not Healed Not Healed -Ulcer Cleansing Rinsed/ Rinsed/ Rinsed/ Irrigated with Irrigated with Irrigated with Saline Saline Saline -Foul Odor after Cleansing No No No -Bioengineered Tissue No No -Bleeding Controlled with Pressure Pressure Pressure -Treatment Response Procedure Procedure Tolerated Well Tolerated Well -Total Non-Weight Bearing to Left Lower Extremity -Debridement - Subq, 1st 20sq cm Yes Yes Yes Pain Scale: 0-10 Numeric Is Patient Pain Free? Yes Yes Yes - Nurse 3 - General Ulcer D/C NN Start: 04/18/24 11:22 Freq: Status: Active Protocol: Activity Type Activity Date Activity User E-sign Co-sign Detail Recorded Client Recorded Date Recorded By Document 04/18/24 12:10 RB [id number] 04/18/24 12:11 RB Document 04/25/24 09:23 RB [id number] 04/25/24 09:23 RB Document 05/02/24 11:13 RB [id number] 05/02/24 11:14 RB 04/18/24 04/25/24 05/02/24 12:10 09:23 11:13 Wound Care Center Nurse 3 #1 RT COREA -Ulcer Cleansing Rinsed/ Rinsed/ Rinsed/ Irrigated with Irrigated with Irrigated with Saline Saline Saline -Primary Dressing Applied NonAdherent NonAdherent NonAdherent Contact Layer Contact Layer Contact Layer -Other Dressing hydrogel hydrogel hydrogel -Primary Dressing Covered/Secured with Dry Gauze & Dry Gauze, Dry Gauze,Dry Roll Gauze, Secured with Gauze & Roll Secured with Tape Gauze,Secured Tape with Tape -Other Covering ABD abd Right -Tubular Bandage Single Layer Single Layer Single Layer -Size of Tubigrip Used Size D Size E Size D -Size D ($) 1 1 -Size E ($) 1 Treatment Response Procedure Procedure Tolerated Well Tolerated Well Pain Scale: 0-10 Numeric Is Patient Pain Free? Yes Yes Yes - Visit Discharge Discharge Condition Stable Stable Stable Ambulatory Status Ambulatory Ambulatory Ambulatory Transportation Private Auto Private Auto Private Auto Medication Reconcilliation completed & No No No provided to patient/care provider Clinical Summary of Care Provided Yes Yes Yes Assessment/Plan Assessment/Plan (1) Fibromyalgia: CODE(S): M79.7 - Fibromyalgia (2) Asthma: CODE(S): J45.909 - Unspecified asthma, uncomplicated QUALIFIERS: Asthma severity: mild Asthma persistence: persistent Asthma complication type: unspecified Qualified Code(s): J45.30 - Mild persistent asthma, uncomplicated (3) Hyperlipidemia: CODE(S): E78.5 - Hyperlipidemia, unspecified QUALIFIERS: Hyperlipidemia type: unspecified Qualified Code(s): E78.5 - Hyperlipidemia, unspecified (4) Ulcer of right corea with fat layer exposed: CODE(S): L97.812 - Non-pressure chronic ulcer of other part of right lower leg with fat layer exposed (5) Nonhealing nonsurgical wound with fat layer exposed: CODE(S): T14.8XXA - Other injury of unspecified body region, initial encounter (6) Tear of skin of multiple sites of right lower extremity: CODE(S): S81.811A - Laceration without foreign body, right lower leg, initial encounter QUALIFIERS: Encounter type: sequela Qualified Code(s): S81.811S - Laceration without foreign body, right lower leg, sequela (7) Laceration of right lower leg with complication: CODE(S): S81.811A - Laceration without foreign body, right lower leg, initial encounter QUALIFIERS: Encounter type: sequela Qualified Code(s): S81.811S - Laceration without foreign body, right lower leg, sequela PLAN: Plan Wound debridement performed today in clinic as annotated above. At home wound-care instructions: There is improvement with change to Hydrogel and adaptic and having her reapply hydrogel 8-12 hours after initial dressing change to areas that are more dry. She will continue to use an MARI bandage for compression or Tubigrip. Advised her to shower and wash with antibacterial soap daily before applying a new dressing. If dressing is adherent then she can apply warm washcloth to loosen dressing from wound/ulcer. Keep dressing clean and dry. Off-loading: The patient was instructed to avoid pressure and friction on the affected areas. Reposition every 2 hours at minimum. Avoid prolonged standing and/or dangling of legs. When seated, feet should be elevated at chest level. Frequent ambulation is encouraged. Diet: Patient encouraged to increase protein intake while taking caution to avoid high carbohydrate and/or sugar intake. Labs/cultures/imaging: Wound culture was positive for Serratia, Staph and anaerobic bacteria. She completed treatment with Cipro and Flagyl. Follow-up: Return in 1 week for wound care follow up as she will be out of town. Return sooner or report to the emergency room should symptoms worsen, or new symptoms arise. Note: [employer] speech recognition rfid strategist software was used to create portions of this document. Sound-alike and misspelled words, as well as other rfid strategist errors may be contained in the documentation.
[2024-05-09 10:28] VITALS: BP 143/78; PULSE 102; RESP 18; TEMP 35.7; BMI 30.6
--- NOTE | 2024-05-09 13:08 | PCM.WC.PN ---
History of Present Illness Date of Service: 05/09/24 Chief Complaint: Nonhealing ulcer of right corea s/p laceration History of Wound: Flores is a pleasant 58 yo woman that presents to the wound healing center today for evaluation and treatment of a nonhealing ulcer of her right corea s/p a laceration in the beginning of February that occurred due to her falling through wood steps at her home. She was taken to [facility] by ambulance at that time and was seen by Dr. Munoz who sutured the laceration in the ER. She was started on Keflex to prevent infection and has been following up with him over the last few weeks. There was still a lot of swelling and erythema and Bactrim was added after the first visit to cover for additional possible infection and she has been taking that for approx. 3 weeks. He removed the stitches last week and tried to keep the laceration approximated with steri-strips to encourage further healing and prevent further dehiscence and referred her to the wound center for further treatment. She had been dressing her wound with Telfa bandages and using an MARI bandage for compression. She notes moderate to heavy drainage from the wound but no odor. She has some pain. There has been no increase in erythema. She has not been showering. She has only been cleaning with soap and water with dressing changes. She is otherwise healthy and does not have diabetes and has not had problems healing in the past. Subjective Subjective Flores returns today for evaluation of her right corea ulcer. She is tolerating dressings with hydrogel and adaptic and ABDs well. She reports light drainage. She denies increased drainage, fever or chills. Objective Data Objective Data Vital Signs: Vital Signs Temp Pulse Resp BP O2 Del Method 96.2 F L 102 H 18 143/78 H Room Air 05/09/24 10:28 05/09/24 10:28 05/09/24 10:28 05/09/24 10:04/25/24 08:19 Oxygen Delivery Method Room Air Weight: 73.482 kg Body Mass Index (BMI) 30.6 Physical Exam Const alert, oriented x3 and no apparent distress General Appearance: cooperative and comfortable HEENT normocephalic and head/scalp atraumatic Resp normal respiratory effort Effort and Inspection: able to speak in complete sentences Cardio regular rate and regular rhythm Skin Wounds: wounds noted Wound Narrative: as in clinical panel Psych mental status grossly normal, thought process normal, cooperative and affect normal Debridement Note Debridement Note Wound debrided: right corea Laterality: Right Type of Debridement: Excisional debridement Anesthesia Used: 5% Lidocaine Gel Depth: Down to and including healthy tissue and in the subcutaneous layer Percentage of wound debrided: 100 Instrument Used: 3mm curette Tissue Removed: Yellow slough, devitalized tissue Severity: Fat Layer Exposed Amount of bleeding with debridement: Mild Bleeding Controlled with: Compression and gauze Patient tolerated procedure: Patient tolerated procedure well Post-Debridement Measurements and Additional Note: Post-Debridement Measurements/Treatment - Nurse 1 - General Ulcer Assessment Start: 04/18/24 11:22 Freq: Status: Active Protocol: [employer] Activity Type Activity Date Activity User E-sign Co-sign Detail Recorded Client Recorded Date Recorded By Document 04/18/24 11:22 KW [id number] 04/18/24 11:28 KW Document 04/25/24 08:19 KW [id number] 04/25/24 08:31 KW Document 05/02/24 10:25 RB [id number] 05/02/24 10:27 RB Document 05/09/24 10:28 KW [id number] 05/09/24 10:31 KW 04/18/24 04/25/24 05/02/24 11:22 08:19 10:25 - Today's Visit Information Type of service Follow-up Visit Follow-up Visit Follow-up Visit (Physician/ELECTRONIC HEALTH RECORDS SPECIALIST (Physician/ELECTRONIC HEALTH RECORDS SPECIALIST (Physician/ELECTRONIC HEALTH RECORDS SPECIALIST ) ) ) Arrival Mode Ambulatory Ambulatory Ambulatory Transfer Assistance None Accompanied by Patient Identification Verified (Name & Yes Yes Yes ) Patient Requires Transmission-Based No Precautions Height and Weight Body Mass Index (BMI) 30.6 30.6 30.6 BMI Classification Obese Obese Obese Vital Signs Temperature (97.8 F-99.1 F) 97.4 F L 96.3 F L 97.4 F L Temperature Source Temporal Temporal Temporal Pulse Rate (60-100) 111 H 94 100 Pulse Location Monitor Monitor Monitor Respiratory Rate (12-18) 18 18 18 Respiratory rate source Observation Observation Observation Oxygen Delivery Method Room Air Room Air Blood Pressure (90/60-120/80) 113/74 140/84 H 116/78 Blood Pressure Mean (mm Hg) 87 102 90 Source Monitor Monitor Monitor Position Sitting Semi-Fowlers Semi-Fowlers Blood Pressure Location Left Arm Left Arm Left Arm History Since Last Visit- (Skip if this is Patient's initial visit) Have you changed medications since your No No No last visit? Any new allergies or adverse reactions No No No Had a fall/change in ADL's that may No No No increase risk of falls Signs or symptoms of abuse and/or No No No neglect since last visit Have you been in the hospital since your No No No last visit? Has dressing in place as prescribed Yes Yes Yes Has compression in place as prescribed Yes Yes Yes Has offloadiing in place as prescribed N/A N/A No Experienced any changes in pain level or No No No management Left Footwear Regular Shoe Regular Shoe Right Footwear Regular Shoe Regular Shoe Pain Scale: 0-10 Numeric Is Patient Pain Free? Yes Yes Yes 05/09/24 10:28 WC - Today's Visit Information Type of service Follow-up Visit (Physician/ELECTRONIC HEALTH RECORDS SPECIALIST ) Arrival Mode Ambulatory Transfer Assistance None Accompanied by Patient Identification Verified (Name & Yes ) Patient Requires Transmission-Based No Precautions Height and Weight Body Mass Index (BMI) 30.6 BMI Classification Obese Vital Signs Temperature (97.8 F-99.1 F) 96.2 F L Temperature Source Temporal Pulse Rate (60-100) 102 H Pulse Location Monitor Respiratory Rate (12-18) 18 Respiratory rate source Observation Oxygen Delivery Method Blood Pressure (90/60-120/80) 143/78 H Blood Pressure Mean (mm Hg) 99 Source Monitor Position Semi-Fowlers Blood Pressure Location Left Arm History Since Last Visit- (Skip if this is Patient's initial visit) Have you changed medications since your No last visit? Any new allergies or adverse reactions No Had a fall/change in ADL's that may No increase risk of falls Signs or symptoms of abuse and/or No neglect since last visit Have you been in the hospital since your No last visit? Has dressing in place as prescribed Yes Has compression in place as prescribed Yes Has offloadiing in place as prescribed No Experienced any changes in pain level or No management Left Footwear Right Footwear Pain Scale: 0-10 Numeric Is Patient Pain Free? Yes - Nurse 1 - General Ulcer Measurement Start: 04/18/24 11:22 Freq: Status: Active Protocol: Activity Type Activity Date Activity User E-sign Co-sign Detail Recorded Client Recorded Date Recorded By Document 04/18/24 11:22 KW [id number] 04/18/24 11:28 KW Document 04/25/24 08:19 KW [id number] 04/25/24 08:31 KW Document 05/02/24 10:25 RB [id number] 05/02/24 10:27 RB Document 05/09/24 10:28 KW [id number] 05/09/24 10:31 KW 04/18/24 04/25/24 05/02/24 11:22 08:19 10:25 Wound Center Nurse 1 #1 RT COREA -Combined with other wound No -Current Size (cm) - Length 9 3 1 -Current Size (cm) - Width 8.5 5.7 2.5 -Current Size (cm) - Depth 0.2 0.3 0.2 -Total Square Cm 76.5 17.1 2.5 -Date of Last Picture (Recall this 04/18/24 04/25/24 field) -Epithelialization -Tunneling No -Undermining/Tunneling No -Circular Undermining No -Exudate Amt Small Small Medium -Exudate Type Serosanguineous Serosanguineous Serosanguineous -Wound Margin Distinct, Distinct, Distinct, Outline Outline Outline Attached Attached Attached -Granulation Amt Medium (34-66%) Large (67-100%) Medium (34-66%) -Granulation Quality [place] -Slough/Fibrin Yes -Necrosis Amt Medium (34-66%) Medium (34-66%) Medium (34-66%) -Necrotic Tissue Type Adherent Slough Adherent Slough Adherent Slough -Structure Exposed N/A -Texture (Rozina-wound Skin Appearance) Assessed Assessed Assessed, Scarring -Moisture (Rozina-wound Skin Appearance) Assessed Assessed Assessed -Color (Rozina-wound Skin Appearance) Assessed Assessed Assessed -Temperature (Rozina-wound Skin No Abnormality No Abnormality No Abnormality Appearance) (Pt Warm) (Pt Warm) (Pt Warm) -Tenderness on Palpation (Rozina-wound No No No Skin Appearance) -Ulcer Cleansing Rinsed/ Rinsed/ Wound Cleanser Irrigated with Irrigated with Saline Saline -Foul Odor after Cleansing No No No -Anesthetic Used 5% Lidocaine 5% Lidocaine 5% Lidocaine Gel Gel Gel Lower Limb Edema Present Yes Right Calf (cm) 34 34 Right Ankle (cm) 20 19.5 Left Calf (cm) 33.5 Left Ankle (cm) 19 1025/24 10:28 Wound Center Nurse 1 #1 RT COREA -Combined with other wound No -Current Size (cm) - Length 1.4 -Current Size (cm) - Width 0.9 -Current Size (cm) - Depth 0.2 -Total Square Cm 1.26 -Date of Last Picture (Recall this field) -Epithelialization Large 67-100% -Tunneling -Undermining/Tunneling -Circular Undermining -Exudate Amt Small -Exudate Type Serosanguineous -Wound Margin Distinct, Outline Attached -Granulation Amt Medium (34-66%) -Granulation Quality [place],Red -Slough/Fibrin -Necrosis Amt Medium (34-66%) -Necrotic Tissue Type Adherent Slough -Structure Exposed -Texture (Rozina-wound Skin Appearance) Assessed -Moisture (Rozina-wound Skin Appearance) Assessed -Color (Rozina-wound Skin Appearance) Assessed -Temperature ([place]ozina-wound Skin No Abnormality Appearance) (Pt Warm) -Tenderness on Palpation (Rozina-wound No Skin Appearance) -Ulcer Cleansing Rinsed/ Irrigated with Saline -Foul Odor after Cleansing No -Anesthetic Used 5% Lidocaine Gel Lower Limb Edema Present Right Calf (cm) Right Ankle (cm) Left Calf (cm) Left Ankle (cm) WC - Nurse 2 - General Ulcer CM Notes Start: 04/18/24 11:22 Freq: Status: Active Protocol: Activity Type Activity Date Activity User E-sign Co-sign Detail Recorded Client Recorded Date Recorded By Document 04/18/24 11:42 [id number] 04/18/24 12:03 Document 04/25/24 08:43 [id number] 04/25/24 08:56 Document 05/02/24 10:38 [id number] 05/02/24 10:53 Document 05/09/24 11:05 [id number] 05/09/24 11:13 04/18/24 04/25/24 05/02/24 11:42 08:43 10:38 Wound Center Nurse 2 #1 RT COREA -Time 11:42 08:43 10:39 -Correct Patient Yes Yes Yes -Correct Side, Site, Position Yes Yes Yes -Correct Procedure Yes Yes Yes -Procedure Performed Yes Yes Yes -Type of Procedure Debridement Debridement Debridement -Clinical Debridement Subcutaneous Subcutaneous Subcutaneous -Tissue Removed Subcutaneous Subcutaneous Subcutaneous -Post Debridement (cm) - Length 3.0 1.0 0.7 -Post Debridement (cm) - Width 6.0 3.7 2.2 -Post Debridement (cm) - Depth 0.2 0.2 0.2 -Total Square (Post) (cm) 18.00 3.70 1.54 -Area of Debridement (cm) - Length 3.0 1.0 0.7 -Area of Debridement (cm) - Width 6.0 3.7 2.2 -Total Square (Area) (cm) 18.00 3.70 1.54 -Tunneling No No No -Undermining/Tunneling No No No -Circular Undermining No No No -Wound/Ulcer Outcome Not Healed Not Healed Not Healed -Ulcer Cleansing Rinsed/ Rinsed/ Rinsed/ Irrigated with Irrigated with Irrigated with Saline Saline Saline -Foul Odor after Cleansing No No No -Bioengineered Tissue No No -Bleeding Controlled with Pressure Pressure Pressure -Treatment Response Procedure Procedure Tolerated Well Tolerated Well -Total Non-Weight Bearing to Left Lower Extremity -Debridement - Subq, 1st 20sq cm Yes Yes Yes Pain Scale: 0-10 Numeric Is Patient Pain Free? Yes Yes Yes 05/09/24 11:05 Wound Center Nurse 2 #1 RT COREA -Time 11:06 -Correct Patient Yes -Correct Side, Site, Position Yes -Correct Procedure Yes -Procedure Performed Yes -Type of Procedure Debridement -Clinical Debridement Subcutaneous -Tissue Removed Subcutaneous -Post Debridement (cm) - Length 0.6 -Post Debridement (cm) - Width 2.0 -Post Debridement (cm) - Depth 0.2 -Total Square (Post) (cm) 1.20 -Area of Debridement (cm) - Length 0.6 -Area of Debridement (cm) - Width 2.0 -Total Square (Area) (cm) 1.20 -Tunneling No -Undermining/Tunneling No -Circular Undermining No -Wound/Ulcer Outcome Not Healed -Ulcer Cleansing Rinsed/ Irrigated with Saline -Foul Odor after Cleansing No -Bioengineered Tissue No -Bleeding Controlled with Pressure -Treatment Response Procedure Tolerated Well -Total Non-Weight Bearing to -Debridement - Subq, 1st 20sq cm Yes Pain Scale: 0-10 Numeric Is Patient Pain Free? Yes WC - Nurse 3 - General Ulcer D/C NN Start: 04/18/24 11:22 Freq: Status: Active Protocol: Activity Type Activity Date Activity User E-sign Co-sign Detail Recorded Client Recorded Date Recorded By Document 04/18/24 12:10 RB [id number] 04/18/24 12:11 RB Document 04/25/24 09:23 RB [id number] 04/25/24 09:23 RB Document 05/02/24 11:13 RB [id number] 05/02/24 11:14 RB Document 05/09/24 11:22 KW [id number] 05/09/24 11:23 KW 04/18/24 04/25/24 05/02/24 12:10 09:23 11:13 Wound Care Center Nurse 3 #1 RT COREA -Ulcer Cleansing Rinsed/ Rinsed/ Rinsed/ Irrigated with Irrigated with Irrigated with Saline Saline Saline -Primary Dressing Applied NonAdherent NonAdherent NonAdherent Contact Layer Contact Layer Contact Layer -Other Dressing hydrogel hydrogel hydrogel -Primary Dressing Covered/Secured with Dry Gauze & Dry Gauze, Dry Gauze,Dry Roll Gauze, Secured with Gauze & Roll Secured with Tape Gauze,Secured Tape with Tape -Other Covering ABD abd Right -Tubular Bandage Single Layer Single Layer Single Layer -Size of Tubigrip Used Size D Size E Size D -Size D ($) 1 1 -Size E ($) 1 -Other Treatment Response Procedure Procedure Tolerated Well Tolerated Well Pain Scale: 0-10 Numeric Is Patient Pain Free? Yes Yes Yes WC - Visit Discharge Discharge Condition Stable Stable Stable Ambulatory Status Ambulatory Ambulatory Ambulatory Transportation Private Auto Private Auto Private Auto Medication Reconcilliation completed & No No No provided to patient/care provider Clinical Summary of Care Provided Yes Yes Yes 05/09/24 11:22 Wound Care Center Nurse 3 #1 RT COREA -Ulcer Cleansing -Primary Dressing Applied NonAdherent Contact Layer -Other Dressing hydrogel -Primary Dressing Covered/Secured with Dry Gauze & Roll Gauze, Secured with Tape -Other Covering Right -Tubular Bandage -Size of Tubigrip Used -Size D ($) -Size E ($) -Other D- pt tubigrip she came in with was still intact and we put that back on Treatment Response Pain Scale: 0-10 Numeric Is Patient Pain Free? Yes WC - Visit Discharge Discharge Condition Ambulatory Status Transportation Medication Reconcilliation completed & provided to patient/care provider Clinical Summary of Care Provided Assessment/Plan Assessment/Plan (1) Fibromyalgia: CODE(S): M79.7 - Fibromyalgia (2) Asthma: CODE(S): J45.909 - Unspecified asthma, uncomplicated QUALIFIERS: Asthma severity: mild Asthma persistence: persistent Asthma complication type: unspecified Qualified Code(s): J45.30 - Mild persistent asthma, uncomplicated (3) Hyperlipidemia: CODE(S): E78.5 - Hyperlipidemia, unspecified QUALIFIERS: Hyperlipidemia type: unspecified Qualified Code(s): E78.5 - Hyperlipidemia, unspecified (4) Ulcer of right corea with fat layer exposed: CODE(S): L97.812 - Non-pressure chronic ulcer of other part of right lower leg with fat layer exposed (5) Nonhealing nonsurgical wound with fat layer exposed: CODE(S): T14.8XXA - Other injury of unspecified body region, initial encounter (6) Tear of skin of multiple sites of right lower extremity: CODE(S): S81.811A - Laceration without foreign body, right lower leg, initial encounter QUALIFIERS: Encounter type: sequela Qualified Code(s): S81.811S - Laceration without foreign body, right lower leg, sequela (7) Laceration of right lower leg with complication: CODE(S): S81.811A - Laceration without foreign body, right lower leg, initial encounter QUALIFIERS: Encounter type: sequela Qualified Code(s): S81.811S - Laceration without foreign body, right lower leg, sequela PLAN: Plan Wound debridement performed today in clinic as annotated above. At home wound-care instructions: There is improvement with Hydrogel and adaptic. She will continue to use Tubigrip. Advised her to shower and wash with antibacterial soap daily before applying a new dressing. If dressing is adherent then she can apply warm washcloth to loosen dressing from wound/ulcer. Keep dressing clean and dry. Off-loading: The patient was instructed to avoid pressure and friction on the affected areas. Reposition every 2 hours at minimum. Avoid prolonged standing and/or dangling of legs. When seated, feet should be elevated at chest level. Frequent ambulation is encouraged. Diet: Patient encouraged to increase protein intake while taking caution to avoid high carbohydrate and/or sugar intake. Labs/cultures/imaging: Wound culture was positive for Serratia, Staph and anaerobic bacteria. She completed treatment with Cipro and Flagyl. Follow-up: Return in 1 week for wound care follow up as she will be out of town. Return sooner or report to the emergency room should symptoms worsen, or new symptoms arise. Note: [employer] speech recognition youth services librarian software was used to create portions of this document. Sound-alike and misspelled words, as well as other youth services librarian errors may be contained in the documentation.
== END 2024-05-15 23:59 | disposition home or self-care (01) ==
LOC: WC 10:30
PROVIDERS: PCP Family Medicine; Referring Provider Student in an Organized Health Care Education/Training Program; Visit Provider Family Medicine
DX: L97.812 Non-pressure chronic ulcer of other part of right lower leg with fat layer exposed (principal); M79.7 Fibromyalgia; J45.30 Mild persistent asthma, uncomplicated; E78.5 Hyperlipidemia, unspecified; S81.811S Laceration without foreign body, right lower leg, sequela
CPT/HCPCS: 11042

== ENCOUNTER 2024-05-23 10:27 | Outpatient (RCR) | payer BC, SELFPAY ==
[2024-05-16 00:39] VITALS: BP 140/84; PULSE 108; RESP 18; TEMP 36.7; BMI 30.6
[2024-05-23 10:40] VITALS: BP 128/80; PULSE 100; RESP 18; TEMP 36.5; BMI 30.6
--- NOTE | 2024-05-23 12:45 | PN.PCM_ITS ---
History of Present Illness Date of Service: 05/23/24 Chief Complaint: Nonhealing ulcer of right corea s/p laceration History of Wound: Flores is a pleasant 58 yo woman that presents to the wound healing center today for evaluation and treatment of a nonhealing ulcer of her right corea s/p a laceration in the beginning of February that occurred due to her falling through wood steps at her home. She was taken to [facility] by ambulance at that time and was seen by Dr. Munoz who sutured the laceration in the ER. She was started on Keflex to prevent infection and has been following up with him over the last few weeks. There was still a lot of swelling and erythema and Bactrim was added after the first visit to cover for additional possible infection and she has been taking that for approx. 3 weeks. He removed the stitches last week and tried to keep the laceration approximated with steri-str ips to encourage further healing and prevent further dehiscence and referred her to the wound center for further treatment. She had been dressing her wound with Telfa bandages and using an MARI bandage for compression. She notes moderate to heavy drainage from the wound but no odor. She has some pain. There has been no increase in erythema. She has not been showering. She has only been cleaning wit h soap and water with dressing changes. She is otherwise healthy and does not have diabetes and has not had problems healing in the past. Subjective Subjective Flores returns today for evaluation of her right corea ulcer. She is tolerating dressings with hydrogel and adaptic and gauze well. She reports light drainage. She denies increased drainage, fever or chills. Objective Data Objective Data Vital Signs: Vital Signs Temp Pulse Resp BP 97.7 F L 100 18 128/80 H 05/23/24 10:40 05/23/24 10:40 05/23/24 10:40 05/23/24 10:40 Weight: 73.482 kg Body Mass Index (BMI) 30.6 Physical Exam Const alert, oriented x3 and no apparent distress General Appearance: cooperative and comfortable HEENT normocephalic and head/scalp atraumatic Resp normal respiratory effort Effort and Inspection: able to speak in complete sentences Cardio regular rate and regular rhythm Skin Wounds: wounds noted Wound Narrative: as in clinical panel Psych mental status grossly normal, thought process normal, cooperative and affect normal Debridement Note Debridement Note Wound debrided: right corea Laterality: Right Type of Debridement: Excisional debridement Anesthesia Used: 4% Lidocaine Solution, 5% Lidocaine Gel and Cetacaine Depth: Down to and including healthy tissue and in the subcutaneous layer Percentage of wound debrided: 100 Instrument Used: 3mm curette Tissue Removed: Yellow slough, devitalized tissue Severity: Fat Layer Exposed Amount of bleeding with debridement: Mild Bleeding Controlled with: Compression and gauze Patient tolerated procedure: Patient tolerated procedure well Post-Debridement Measurements and Additional Note: Post-Debridement Measurements/Treatment - Nurse 1 - General Ulcer Assessment Start: 05/23/24 10:40 Freq: Status: Active Protocol: JAVIER Activity Type Activity Date Activity User E-sign Co-sign Detail Recorded Client Recorded Date Recorded By Document 05/23/24 10:40 WILLA [id number] 05/23/24 10:42 RB 05/23/24 10:40 WC - Today's Visit Information Type of service Follow-up Visit (Physician/PRODUCT SAFETY TESTER ) Arrival Mode Ambulatory Transfer Assistance None Patient Identification Verified (Name & Yes ) Patient Requires Transmission-Based No Precautions Height and Weight Body Mass Index (BMI) 30.6 BMI Classification Obese Vital Signs Temperature (97.8 F-99.1 F) 97.7 F L Temperature Source Temporal Pulse Rate (60-100) 100 Pulse Location Monitor Respiratory Rate (12-18) 18 Respiratory rate source Observation Blood Pressure (90/60-120/80) 128/80 H Blood Pressure Mean (mm Hg) 96 Source Monitor Position Semi-Fowlers Blood Pressure Location Left Arm History Since Last Visit- (Skip if this is Patient's initial visit) Have you changed medications since your No last visit? Any new allergies or adverse reactions No Had a fall/change in ADL's that may No increase risk of falls Signs or symptoms of abuse and/or No neglect since last visit Have you been in the hospital since your No last visit? Has dressing in place as prescribed Yes Has compression in place as prescribed Yes Has offloadiing in place as prescribed No Experienced any changes in pain level or No management Pain Scale: 0-10 Numeric Is Patient Pain Free? Yes - Nurse 1 - General Ulcer Measurement Start: 05/23/24 10:40 Freq: Status: Active Protocol: Activity Type Activity Date Activity User E-sign Co-sign Detail Recorded Client Recorded Date Recorded By Document 05/23/24 10:40 RB [id number] 05/23/24 10:42 RB 05/23/24 10:40 Wound Center Nurse 1 #1 RT COREA -Combined with other wound No -Current Size (cm) - Length 0.6 -Current Size (cm) - Width 1 -Current Size (cm) - Depth 0.1 -Total Square Cm 0.6 -Tunneling No -Undermining/Tunneling No -Circular Undermining No -Exudate Amt Medium -Exudate Type Serosanguineous -Wound Margin Distinct, Outline Attached -Granulation Amt Medium (34-66%) -Granulation Quality [place] -Slough/Fibrin Yes -Necrosis Amt Small (1-33%) -Necrotic Tissue Type Adherent Slough -Structure Exposed N/A -Texture (Rozina-wound Skin Appearance) Assessed, Scarring -Moisture (Rozina-wound Skin Appearance) Assessed -Color (Rozina-wound Skin Appearance) Assessed -Temperature (Rozina-wound Skin No Abnormality Appearance) (Pt Warm) -Tenderness on Palpation (Rozina-wound No Skin Appearance) -Ulcer Cleansing Wound Cleanser -Foul Odor after Cleansing No -Anesthetic Used 5% Lidocaine Gel Lower Limb Edema Present Yes Right Calf (cm) 34 Right Ankle (cm) 18.5 WC - Nurse 2 - General Ulcer CM Notes Start: 05/23/24 10:40 Freq: Status: Active Protocol: Activity Type Activity Date Activity User E-sign Co-sign Detail Recorded Client Recorded Date Recorded By Document 05/23/24 10:50 GM [id number] 05/23/24 10:59 GM 05/23/24 10:50 Wound Center Nurse 2 #1 RT COREA -Time 10:50 -Correct Patient Yes -Correct Side, Site, Position Yes -Correct Procedure Yes -Procedure Performed Yes -Type of Procedure Debridement -Clinical Debridement Subcutaneous -Tissue Removed Subcutaneous -Post Debridement (cm) - Length 0.3 -Post Debridement (cm) - Width 1.0 -Post Debridement (cm) - Depth 0.2 -Total Square (Post) (cm) 0.30 -Area of Debridement (cm) - Length 0.3 -Area of Debridement (cm) - Width 1.0 -Total Square (Area) (cm) 0.30 -Tunneling No -Undermining/Tunneling No -Circular Undermining No -Wound/Ulcer Outcome Not Healed -Ulcer Cleansing Rinsed/ Irrigated with Saline -Foul Odor after Cleansing No -Bioengineered Tissue No -Bleeding Controlled with Pressure -Treatment Response Procedure Tolerated Well -Debridement - Subq, 1st 20sq cm Yes Pain Scale: 0-10 Numeric Is Patient Pain Free? Yes WC - Nurse 3 - General Ulcer D/C NN Start: 05/23/24 10:40 Freq: Status: Active Protocol: Activity Type Activity Date Activity User E-sign Co-sign Detail Recorded Client Recorded Date Recorded By Document 05/23/24 11:09 KW [id number] 05/23/24 11:09 KW 05/23/24 11:09 Wound Care Center Nurse 3 #1 RT COREA -Primary Dressing Applied NonAdherent Contact Layer -Other Dressing gel -Primary Dressing Covered/Secured with Dry Gauze & Roll Gauze, Secured with Tape Right -Tubular Bandage Single Layer -Size of Tubigrip Used Size D -Size D ($) 1 Pain Scale: 0-10 Numeric Is Patient Pain Free? Yes Assessment/Plan Assessment/Plan (1) Fibromyalgia: CODE(S): M79.7 - Fibromyalgia (2) Asthma: CODE(S): J45.909 - Unspecified asthma, uncomplicated QUALIFIERS: Asthma severity: mild Asthma persistence: persistent Asthma complication type: unspecified Qualified Code(s): J45.30 - Mild persistent asthma, uncomplicated (3) Hyperlipidemia: CODE(S): E78.5 - Hyperlipidemia, unspecified QUALIFIERS: Hyperlipidemia type: unspecified Qualified Code(s): E78.5 - Hyperlipidemia, unspecified (4) Ulcer of right corea with fat layer exposed: CODE(S): L97.812 - Non-pressure chronic ulcer of other part of right lower leg with fat layer exposed (5) Nonhealing nonsurgical wound with fat layer exposed: CODE(S): T14.8XXA - Other injury of unspecified body region, initial encounter (6) Tear of skin of multiple sites of right lower extremity: CODE(S): S81.811A - Laceration without foreign body, right lower leg, i nitial encounter QUALIFIERS: Encounter type: sequela Qualified Code(s): S81.811S - Laceration without foreign body, right lower leg, sequela (7) Laceration of right lower leg with complication: CODE(S): S81.811A - Laceration without foreign body, right lower leg, initial encounter QUALIFIERS: Encounter type: sequela Qualified Code(s): S81.811S - Laceration without foreign body, right lower leg, sequela PLAN: Plan Wound debridement performed today in clinic as annotated above. At home wound-care instructions: Advised her to shower and wash with antibacterial soap daily before applying a new dressing. Will have her continue using hydrogel and adaptic and cover with gauze. If dressing is adherent then she can apply warm washcloth to loosen dressing from wound/ulcer. Keep dressing clean and dry. Off-loading: The patient was instructed to avoid pressure and friction on the affected areas. Reposition every 2 hours at minimum. Avoid prolonged standing and/or dangling of legs. When seated, feet should be elevated at chest level. Frequent ambulation is encouraged. Diet: Patient encouraged to increase protein intake while taking caution to avoid high carbohydrate and/or sugar intake. Labs/cultures/imaging: She completed treatment with Cipro and Flagyl. Follow-up: Return in 2 weeks for wound care follow up as she will be out of town. Return sooner or report to the emergency room should symptoms worsen, or new symptoms arise. Note: [employer] speech recognition supervisor television chassis repair software was used to create portions of this document. Sound-alike and misspelled words, as well as other supervisor television chassis repair errors may be contained in the documentation.
== END 2024-06-14 23:59 | disposition home or self-care (01) ==
LOC: WC 10:27
PROVIDERS: PCP Family Medicine; Referring Provider Student in an Organized Health Care Education/Training Program; Visit Provider Family Medicine
DX: L97.812 Non-pressure chronic ulcer of other part of right lower leg with fat layer exposed (principal); E78.5 Hyperlipidemia, unspecified; J45.30 Mild persistent asthma, uncomplicated; M79.7 Fibromyalgia; S81.811S Laceration without foreign body, right lower leg, sequela; W26.8XXS Contact with other sharp object(s), not elsewhere classified, sequela
CPT/HCPCS: 11042